=== PATIENT | male | born 1995 | race Caucasian/White ===

== ENCOUNTER 2017-05-29 10:00 | Day surgery (SDC) | payer OTHER ==
[~2017-05-29] VITALS: Ht 180.3 cm; Wt 70.3 kg
[~2017-05-29 10:00] MED LIST: LIDOCAINE VISCOUS 2% 15ML UD ONE; SODIUM CHLORIDE LOCK 10 ML ONE; diphenhdrAMINE HCL 50 MG/1 ML VL ONE
[2017-05-29] MEDS: fentaNYL CITRATE 100 MCG/2 ML VL ONE ×6 (10:32→10:53)
[2017-05-29] MEDS: MIDAZOLAM HCL 5 MG/ML-1ML VIAL ONE ×6 (10:32→10:53)
[2017-05-29 11:44] VITALS: BP 116/75
== END 2017-05-29 11:53 | disposition home or self-care (01) ==
LOC: GI 10:00
PROVIDERS: ATTEND Internal Medicine Gastroenterology
DX: K62.89 Other specified diseases of anus and rectum (principal); K29.50 Unspecified chronic gastritis without bleeding; Z88.0 Allergy status to penicillin; Z88.1 Allergy status to other antibiotic agents; E66.9 Obesity, unspecified; Z68.21 Body mass index [BMI] 21.0-21.9, adult; F17.210 Nicotine dependence, cigarettes, uncomplicated
CPT/HCPCS: 43239; 45380; J1200; J3010; 99152; 99153; J2250